=== PATIENT | male | born 1955 | race Caucasian/White ===

== ENCOUNTER 2016-06-26 18:20 | Inpatient (IN) ==
[2016-06-26 18:49] LABS: MANUAL DIFF NEEDED? NO
[2016-06-26 18:49] LABS: URINE CULTURE NEEDED? NO; URINE MICRO REVIEW NEEDED? NO; URINE SOURCE CLEAN CATCH
[2016-06-26 19:10] LABS: BILIRUBIN URINE NEGATIVE (NEGATIVE); BLOOD URINE NEGATIVE (NEGATIVE); COLOR YELLOW; GLUCOSE URINE >1000 mg/dL (NEGATIVE); LEUKOCYTES URINE NEGATIVE (NEGATIVE); NITRITE URINE NEGATIVE (NEGATIVE); PH URINE 6.5; PROTEIN URINE 100 mg/dL (NEGATIVE); SP GRAVITY URINE 1.027; TURBIDITY URINE CLEAR (CLEAR); UROBILINOGEN URINE NORMAL (NORMAL)
[2016-06-26 19:12] LABS: BASO% 0.3 % (0.0-0.8); EOS# 0.14 X1000 (0.0-0.7); EOS% 1.2 % (0.0-10.0); HEMATOCRIT 56.7 % (42.0-52.0); HEMOGLOBIN 19.1 g/dL (14.0-18.0); IMM GRAN# 0.03 X1000 (0.0-0.04); IMM GRAN% 0.3 % (0.0-0.5); LYMPH# 0.89 X1000 (1.2-3.4); LYMPH% 7.4 % (20.5-51.1); MCHC 33.7 g/dL (33-37); MCV 89.2 FL (81-99); MONO# 0.83 X1000 (0.11-0.59); MONO% 6.9 % (1.7-9.3); MPV 11.2 FL (7.4-10.4); NEUT% 83.9 % (42.2-75.2); PLT 253 X1000 (130-400); RBC 6.36 XMIL (4.7-6.1)
[2016-06-26 19:12] LABS: UR EPITHELIAL CELLS <10 /HPF (<10); URINE BACTERIA NEGATIVE /HPF; URINE RBC <10 /HPF (<10); URINE WBC <10 /HPF (<10)
[2016-06-26 19:23] LABS: CALCIUM 9.4 mg/dL (8.8-10.2); POTASSIUM 4.3 mmol/L (3.5-5.1); TOTAL BILIRUBIN 0.55 mg/dL (0.20-1.00); TOTAL PROTEIN 7.5 g/dL (6.3-8.3)
[2016-06-26] MEDS ORDERED: NS 1,000 ML IV ONE (21:34)
[2016-06-26] MEDS ORDERED: ZOFRAN IV ONE (21:35)
[2016-06-26] MEDS ORDERED: TORADOL IV ONE (21:36)
--- NOTE | 2016-06-27 00:06 | Diag Imaging Result Document ---
PROCEDURE NAME: ABDOMEN/PELVIS W/CONTRAST - 06/26/2016 CT ABDOMEN AND PELVIS WITH INTRAVENOUS CONTRAST: FINDINGS: There is a small hiatal hernia. Normal spleen, pancreas, gallbladder, and adrenal glands. There is mild fatty infiltration of the liver. No focal hepatic abnormality. A 6 mm nonobstructing stone is found in the left kidney. No renal masses. No hydronephrosis. Normal aorta. The small bowel loops are dilated. The terminal ileum is not dilated. There are many scattered colonic diverticula. These are most numerous in the descending and sigmoid colon. No abscess. No free air. The urinary bladder is moderately distended and appears normal. Prostate is not enlarged. IMPRESSION: 1. There is at least a partial small bowel obstruction. The transition appears to be in the left lower quadrant. 2. Nonobstructing left renal stone. 3. Fatty infiltration of the liver. 4. Small hiatal hernia. 5. Diverticulosis. 6. 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 No subluxation. A preliminary report was given at 10:04 p.m.
[2016-06-27] MEDS: ATIVAN IV SCH ×2 (00:15→22:22)
--- NOTE | 2016-06-27 01:28 | PROVIDER DOCUMENTATION ---
This chart was entered by Blake Hauser Scribe, acting as scribe for Aiden Hilario MD. HPI-Abdominal Pain/GI Problem - General Chief Complaint: Abdominal Pain Stated Complaint: ABD PAIN, "BLOCKAGE" Time Seen by Provider: 06/26/16 21:29 Source: patient Allergies/Adverse Reactions: Patient Allergies Allergy/AdvReac Type Severity Reaction Status Date / Time No Known Allergies Allergy Verified 06/26/16 21:01 Home Medications: Home Medication List Medication Instructions Recorded Confirmed Last Taken Type Diazepam [Valium] 10 mg PO HS 06/26/16 06/26/16 Unknown History - History of Present Illness-ABD Nature of Presenting Problems: Pt is a 61 yom who presents to ER with CC of abdominal pain that started at approximately 0800 today. Pt reports that he arrived at ED at 1700 with nausea, but after vomiting x5 consecutively, his pain went from 8/10 to 4/10. On exam, pt reports that his pain is back to a 6/10 and is complaining of bilateral upper quadrant pain, but is more prominent on Lt side. Pt reports hx of abdominal blockages, but no hx of surgeries. Abdominal Pain Onset Location: reports: RUQ, LUQ Pain Radiation: reports: no radiation Quality of Pain: reports: aching, cramping Severity in ED: reports: severe Onset/Duration: reports: this morning (0800) Timing: reports: still present Associated Symptoms: reports: anxiety, loss of appetite, nausea, weakness, trouble walking. denies: arm pain, back/neck pain, chest pain, constipation, cough, diaphoresis, diarrhea, dizziness, EENT symptoms, fatigue, fever/chills, genitourinary problems, headaches, heartburn, joint pain, malaise, muscle aches , sinus congestion/drainage, rash, seizure, shortness of breath, sensory/motor loss, pain with inspiration, swelling/mass in abdomen, syncope, vomiting Last BM: this morning Dark Stools Present?: reports: none noticed Rectal Bleeding: reports: none Rectal Pain: reports: none Emesis Description: reports: none Review of Systems - Adult - REVIEW OF SYSTEMS - ADULT Constitutional: denies: chills, fever, fatique, night sweats, weight gain, weight loss Eyes: reports: no symptoms reported Ears, Nose, Mouth & Throat: reports: no symptoms reported Cardiovascular: denies: chest pain, edema, heart murmur, irregular heart rate, orthopnea, palpitations, poor circulation, PND, syncope Respiratory: denies: chronic cough, cough, dyspnea on exertion, excessive sputum production, hemoptysis, pleurisy, shortness of breath, wheezing Gastrointestinal: reports: abdominal pain, nausea, poor appetite, vomiting. denies: hematemesis, constipation, diarrhea, difficulty swallowing, frequent heartburn, rectal bleeding Genitourinary: reports: no symptoms reported Musculoskeletal: reports: no symptoms reported Integumentary: reports: no symptoms reported Neurological: reports: no symptoms reported Psychiatric: reports: no symptoms reported Endocrine: reports: no symptoms reported Hematologic/Lymphatic: reports: no symptoms reported Allergic/Immunologic: reports: no symptoms reported All Other Systems: Reviewed and Negative Past History - Adult - PAST MEDICAL HISTORY-ADULT Review of Records: reports: Nursing Assessment Review, Medications Reviewed - IMMUNIZATION STATUS Childhood Immunizations: See Nurse Assessment Flu Vaccine: See Nurse Assessment Physical Exam-General - PHYSICAL EXAM-ADULT Initial Vital Signs Reviewed: Yes - CONSTITUTIONAL General Appearance: appears well, alert, moderate distress, anxious. negative: no apparent distress, mild distress - HEAD, EARS, NOSE, MOUTH & THROAT HENMT: normocephalic/atraumatic, moist mucous membranes, normal ENT inspection, TMs normal, pharynx normal - NECK Neck: non-tender, full range of motion, supple. negative: C-spine tenderness, limited range of motion, lymphadenopathy - RESPIRATORY Respiratory: chest non-tender, lungs clear, normal breath sounds, no pleuratic chest pain, no respiratory distress, no accessory muscle use. negative: respiratory distress, decreased breath sounds, accessory muscle use, wheezing - CARDIOVASCULAR Cardiovascular: normal peripheral pulses, regular rate, rhythm. negative: bradycardia, tachycardia, irregularly irregular - GASTROINTESTINAL (ABDOMEN) Abdominal Exam: normal bowel sounds, soft, abnormal bowel sounds (diminished), tenderness (generalized; more prominent in RUQ). negative: non tender, distended, guarding, rigid, rebound - MUSCULOSKELETAL Back Exam: no CVA tenderness, no vertebral tenderness. negative: CVA tenderness , decreased range of motion, ecchymosis, muscle spasm, swelling Extremity: normal range of motion, non-tender, normal gait, normal inspection, no pedal edema, no calf tenderness, normal capillary refill. negative: deformity, erythema, inflammation, swelling, tenderness - SKIN Integumentary: normal color, normal turgor, warm/dry. negative: abrasion(s), ecchymosis, erythema, laceration(s), swelling, tenderness, warm - NEUROLOGIC Neurologic: mineral mixer II-XII nml as tested, grossly normal, no motor/sensory deficits . negative: facial droop, focal weakness, motor weakness, sensory deficit - PSYCHIATRIC Psych/Mental Status: normal thought content, normal thought process, oriented x 3, anxious, tearful. negative: normal mood/affect Progress - PLAN OF CARE/RESULTS Progress/Plan/Lab Results: Vital Signs - 8 hr 06/26/16 18:29 Temperature 97.7 F Pulse Rate 87 Respiratory Rate 18 O2 Sat by Pulse Oximetry 99 Laboratory Results - last 24 hr 06/26/16 06/26/16 06/26/16 18:40 18:40 18:46 WBC 11.97 H RBC 6.36 H Hgb 19.1 H Hct 56.7 H MCV 89.2 MCH 30.0 MCHC 33.7 RDW Std Deviation 14.1 Plt Count 253 MPV 11.2 H Immature Gran % (Auto) 0.3 Neut % (Auto) 83.9 H Lymph % (Auto) 7.4 L [place] % (Auto) 6.9 Eos % (Auto) 1.2 Baso % (Auto) 0.3 Immature Gran # (Auto) 0.03 Neut # (Auto) 10.05 H Lymph # (Auto) 0.89 L [place] # (Auto) 0.83 H Eos # (Auto) 0.14 Baso # (Auto) 0.03 Sodium 136 Potassium 4.3 Chloride 95 L Carbon Dioxide 26 Anion Gap 15 BUN 14 Creatinine 1.3 H Estimated GFR/1.73 m2 56 BUN/Creatinine Ratio 11 Glucose 211 H Calculated Osmolality 279 Calcium 9.4 Total Bilirubin 0.55 AST 20 ALT 22 Alkaline Phosphatase 96 Total Protein 7.5 Albumin 4.0 Globulin 3.5 Albumin/Globulin Ratio 1.1 Amylase 59 Lipase 49 Urine Source CLEAN CATCH Urine Color YELLOW Urine Turbidity CLEAR Urine pH 6.5 Ur Specific [place] 1.027 Urine Protein 100 A Ur Glucose (Stick) >1000 A Ur Ketones (Stick) 40 A Urine Blood NEGATIVE Urine Nitrite NEGATIVE Urine Bilirubin NEGATIVE Urobilinogen Dipstick NORMAL Urine Leukocytes NEGATIVE Urine WBC (Auto) <10 Urine RBC (Auto) <10 U Epithel Cells (Auto) <10 Urine Bacteria (Auto) NEGATIVE Orders Category Date Time Status NPO Diet 06/26/16 18:34 Active ABDOMEN/PELVIS W/CONTRAST [CT] Stat Exams 06/26/16 21:35 Ordered AMYLASE [CHEM] Stat Lab 06/26/16 18:40 Completed CBC WITH ELECTRONIC DIFF [HEME] Stat Lab 06/26/16 18:40 Completed COMPREHENSIVE METABOLIC PANEL [CHEM] Stat Lab 06/26/16 18:40 Completed LIPASE [CHEM] Stat Lab 06/26/16 18:40 Completed URINALYSIS W/POSS RFLX CULT [URINALYSIS] Stat Lab 06/26/16 18:46 Completed 0.9% Sodium Chloride Inj [Ns] 1,000 ml Med 06/26/16 21:34 Active IV 999 mls/hr Ketorolac [Toradol] Med 06/26/16 21:36 Discontinued 30 mg IV NOW ONE Ondansetron [Zofran] Med 06/26/16 21:35 Discontinued 4 mg IV NOW ONE Result Diagrams: 06/26/16 18:40 06/26/16 18:40 - CT/MRI 1 CT Study: Abdomen, Pelvis Impression: See EMR Report (Partial SBO with apparent transition point in LLQ. Probably due to adhesions. Nonobstructing L renal stone) CT Results: See report - CONSULTS/PCP/HOSPITALIST Notification #1 *Consult/PCP/Hospitalist*: Dr. Sprague (Hospitalist) Time Discussed: 22:24 Consult Disposition: Admit Departure - Departure Time of Disposition Decision: 22:24 DIAGNOSIS: SBO (small bowel obstruction) Disposition: ADMITTED INPATIENT 09 Certified Medical Emergency: Emergent Condition: Stable Referrals and Follow-Ups: Alan Mari [Primary Care Provider] - This chart was documented by the indicated scribe, (Blake Hauser Scribe) and accurately reflects the services I performed and decisions made by me, Aiden Hilario MD, as attested by the provider's signature.
[2016-06-27] MEDS ORDERED: SODIUM CHLORIDE 0.9% INJ PRN (01:48)
[2016-06-27] MEDS ORDERED: ZOFRAN IV PRN (01:48)
[2016-06-27] MEDS: MORPHINE IV PRN ×4 (02:24→22:22)
[2016-06-27] MEDS: PHENERGAN IV PRN ×2 (02:25→16:10)
[2016-06-27 03:13] LABS: HEMOGLOBIN A1C 6.5 % (4.8-6.0)
[2016-06-27 06:13] LABS: MANUAL DIFF NEEDED? NO
[2016-06-27 06:20] LABS: BASO% 0.3 % (0.0-0.8); EOS% 1.1 % (0.0-10.0); HEMATOCRIT 51.7 % (42.0-52.0); HEMOGLOBIN 17.4 g/dL (14.0-18.0); IMM GRAN# 0.04 X1000 (0.0-0.04); IMM GRAN% 0.4 % (0.0-0.5); LYMPH# 0.75 X1000 (1.2-3.4); MCH 30.3 PG (27-31); MCHC 33.7 g/dL (33-37); MCV 90.1 FL (81-99); MONO# 0.88 X1000 (0.11-0.59); MONO% 9.4 % (1.7-9.3); MPV 11.3 FL (7.4-10.4); NEUT% 80.8 % (42.2-75.2); PLT 234 X1000 (130-400); RBC 5.74 XMIL (4.7-6.1)
[2016-06-27 06:32] LABS: AGAP 12; BUN 19 mg/dL (8-22); CALCIUM 8.3 mg/dL (8.8-10.2); CHLORIDE 102 mmol/L (98-107); COSMO 285; POTASSIUM 4.4 mmol/L (3.5-5.1); SODIUM 140 mmol/L (136-145); TCO2 26 mmol/L (25-35)
--- NOTE | 2016-06-27 07:25 | HISTORY AND PHYSICAL ---
PRIMARY CARE PHYSICIAN: Dr. Alan Mari. CHIEF COMPLAINT: Abdominal pain, nausea, and vomiting. HISTORY OF PRESENT ILLNESS: This is a 61-year-old male with history of hypertension, diabetes, and high cholesterol who presented to the emergency department complaining of nausea, vomiting, and mild abdominal pain. The patient reports that today he started vomiting and since then he has had 5 episodes of vomiting with mild abdominal pain in the periumbilical area. He claims that he had 4 times this problem, small-bowel obstruction, though he has not had any surgery before and he was supposed to be seen by Dr. Ahn in 1 week for colonoscopy. Now the patient is doing better and he is not complaining of any fever at all. The patient is being admitted for further evaluation and treatment. PAST MEDICAL HISTORY: 1. Diabetes. 2. Hypertension. 3. Dyslipidemia. 4. Kidney stones. PAST SURGICAL HISTORY: None. ALLERGIES: None. SOCIAL HISTORY: He lives with his . Denies drinking alcohol or drugs, but he admits to have quit smoking 5 or 6 weeks ago. The patient has been admitted for further evaluation and treatment. ER reported that the CT of the abdomen shows a small bowel obstruction. REVIEW OF SYSTEMS: Eleven systems were reviewed and all symptoms are related to H P. PHYSICAL EXAMINATION: VITALS: Temperature 97.7 degrees, heart rate 87, respiratory rate 18, blood pressure Pulse oximetry is 99% on room air. GENERAL: This is a 61-year-old male lying in bed, in no acute distress. HEENT: Head is normocephalic, atraumatic. Anicteric sclerae. Pale conjunctivae. Mucous membranes moist. NECK: Supple. No JVD noted. No carotid bruits. No lymphadenopathy. No thyromegaly. CARDIOVASCULAR: S1, S2 heard. No murmurs, gallops, or rubs. Regular rate and rhythm. RESPIRATORY: Clear bilaterally to auscultation. No work of breathing or using accessory muscles. ABDOMEN: Soft, distended, nontender to palpation. Bowel sounds absent. No organomegaly. EXTREMITIES: No clubbing, cyanosis, or edema. Peripheral pulses present in both legs. NEUROLOGICAL: Patient is alert and oriented x3. Able to move 4 extremities. Cranial nerves 2-12 grossly normal. LABORATORY DATA: White cell count 11.97 with hemoglobin 19.1, hematocrit and BMP unremarkable except mild elevation of creatinine 1.3. ASSESSMENT AND PLAN: 1. Partial small bowel obstruction. 2. Hypertension. 3. Diabetes. PLAN: The patient is being admitted to the hospital for a small-bowel obstruction. According to him, this is the 5th time that he developed this problem. We are going to consult Dr. Jones from General surgery. We are going to consult also GI Dr. Ahn. At this time, I think we are also going to provide IV fluids as well, and medication for nausea and vomiting. Regarding mild COLTON will see what this BMP shows after this patient was hydrated. Further recommendations to follow according to the clinical situation of the patient. cc: Vishal Hernandez MD
--- NOTE | 2016-06-27 10:03 | PROGRESS NOTE ---
DATE: 06/27/2016 SUBJECTIVE: Patient admitted yesterday with small bowel obstruction. He came with abdominal pain, nausea, vomiting. He has had this before. I think his last event was back this last January. A 61-year-old with history of hypertension, diabetes, history of hypercholesterolemia who presented to the emergency department complaining of nausea, vomiting, abdominal pain. Patient reports that he started vomiting. Since then, he has had 5 episodes of vomiting and abdominal pain in the umbilical area. Claims that he has had this problem 4 times with a small bowel obstruction. He has had surgery before and he is supposed to see Dr. Ahn in one week for colonoscopy. PAST MEDICAL HISTORY: 1. Diabetes mellitus type 2. 2. Hypertension. 3. Hyperlipidemia. 4. Kidney stones. PHYSICAL EXAM: Today he does not have an NG tube in yet, they are planning on doing that.Lungs: Clear in all lung arevalo. Abdomen: Slightly distended. Decreased bowel sounds. Extremities: Without clubbing, cyanosis, or edema. Vital signs: Afebrile, temp 98.5 degrees, pulse 67, respirations 18, blood pressure 145/73. REVIEW OF LABS: On presentation, white count 30598, hematocrit 56, platelet count 253,000, sodium 140, potassium 4.1 chloride 102, bicarb 26, BUN 19, creatinine 1.2. The calcium was 8.3. Urinalysis unremarkable. His abdominal pelvic CT shows at least partial small bowel obstruction. Transition seems to be at the left lower quadrant. Nonobstructing left renal stone. Fatty infiltration of liver. Small hiatal hernia. Diverticulosis. Bilateral pars defect at the L5 vertebral. No subluxation. ASSESSMENT AND PLAN: 1. Partial small bowel obstruction. I think we will need an NG-tube in. Dr. Chris Jones is following. Continue IV fluids. 2. Hypertension. Watch blood pressure. 3. Diabetes mellitus type 2. Admitted on pattern sugars with sliding scale. Review of his orders I do not see any change at this point. He is getting normal saline at 125 mL an hour. I think the plan is to place an NG tube. cc: Jin Cortes MD
[2016-06-27] MEDS: NS 1,000 ML IV SCH ×3 (10:52→23:28)
--- NOTE | 2016-06-27 12:56 | Diag Imaging Result Document ---
PROCEDURE NAME: CHEST/ABD TUBE PLACEMENT - 06/27/2016 AP CHEST AND ABDOMEN: INDICATION: NG tube placement. FINDINGS: The NG tube appears to be in the fundus of the stomach. IMPRESSION: NG tube as described.
--- NOTE | 2016-06-27 18:44 | CONSULTATION ---
DATE OF CONSULTATION: 06/27/2016 HISTORY OF PRESENT ILLNESS: This is a 61-year-old male whose had five episodes of bowel obstruction in the past and has never had a previous abdominal operation. Some of these resolved at home, but he is also required recent admission for NG tube placement approximately 1-1/2 years ago. He has had some colicky pains but this improved. Vomited several times the last 24 hours. No flatus, no bowel movements. He has had several colonoscopies that have had polyps at times. Does have family history of Crohn's and Dr. Ahn has planned to scope him soon. PAST MEDICAL HISTORY: Diabetes, hypertension, hyperlipidemia, and kidney stones. PAST SURGICAL HISTORY: Tonsillectomy, but no abdominal operation. SOCIAL HISTORY: Denies alcohol or drugs. Quit smoking about 6 weeks ago. He is . REVIEW OF SYSTEMS: Ten point negative, except for what is mentioned in history of present illness. Denies blood thinners. No cardiac symptoms. PHYSICAL EXAMINATION: Vital Signs: Temperature was 98.5, pulse 67, blood pressure 145/73, oxygen saturation 97% on room air. General: He is alert, no acute distress. HEENT: No scleral icterus. Neck: There is no cervical lymphadenopathy. Cardiovascular: Normal rate, regular rhythm. Pulmonary: No increased work of breathing. Abdomen: Soft, mildly distended, tympanic, but no peritonitis, nontender. Integument: Otherwise warm and dry without jaundice. Extremities: No lower extremity edema. Extremities are well perfused. Musculoskeletal: no atrophy Neuro: normal strength throughout LABS: White count is 9, hematocrit 51, platelets are 234,000. Creatinine is 1.2, potassium 4.4. CO2 is 26. Urinalysis was negative for leukocytes and nitrites. CT of the abdomen and pelvis shows transition point in left lower quadrant causing bowel obstruction, left renal stones, fatty infiltration of liver, small hiatal hernia , diverticulosis, and a bilateral pars defect at L5. ASSESSMENT/PLAN: This is a 61-year-old male, whose had multiple episodes of bowel obstructions of unclear etiology. He denies appendicitis. Never really has pain with these episodes. Never had diverticulitis, although he does have extensive diverticulosis. He has been followed. Does have a family history of Crohn's and has been followed by Dr. Ahn. This was scoped several times. Overall, no concerning risk factors. Denies any bleeding or obstructive symptoms, but when he does have pain it is on his left side. Given the lack of previous abdominal operations, we have had long discussion. I recommend exploration tomorrow. His exam is benign, so I feel is best was to decompress and NG tube for 24 hours prior to proceeding with surgery. Will touch base Dr. Ahn to get a better idea of his GI history, but otherwise we will plan to go tomorrow. We discussed that this would entail exploration, possible bowel resection, low chance of ostomy, but always a possibility. May need to pursue this sooner if his exam deteriorates. cc: Esequiel Jones MD MTDD
[2016-06-28] MEDS: MORPHINE IV PRN ×5 (02:39→21:50)
[2016-06-28] MEDS: NS 1,000 ML IV SCH (02:41)
[2016-06-28 06:10] LABS: MANUAL DIFF NEEDED? NO
[2016-06-28 06:30] LABS: BASO% 0.4 % (0.0-0.8); EOS% 2.8 % (0.0-10.0); HEMATOCRIT 51.3 % (42.0-52.0); HEMOGLOBIN 16.8 g/dL (14.0-18.0); IMM GRAN# 0.02 X1000 (0.0-0.04); IMM GRAN% 0.3 % (0.0-0.5); LYMPH% 8.3 % (20.5-51.1); MCH 30.5 PG (27-31); MCHC 32.7 g/dL (33-37); MCV 93.1 FL (81-99); MONO# 0.68 X1000 (0.11-0.59); MONO% 9.4 % (1.7-9.3); MPV 11.4 FL (7.4-10.4); NEUT% 78.8 % (42.2-75.2); PLT 205 X1000 (130-400); RBC 5.51 XMIL (4.7-6.1)
[2016-06-28 06:41] LABS: AGAP 8; BUN 17 mg/dL (8-22); CALCIUM 7.9 mg/dL (8.8-10.2); CHLORIDE 105 mmol/L (98-107); COSMO 283; POTASSIUM 4.3 mmol/L (3.5-5.1); SODIUM 141 mmol/L (136-145); TCO2 28 mmol/L (25-35)
[2016-06-28] MEDS ORDERED: SODIUM CHLORIDE 0.9% 10 ML ONE (07:56)
[2016-06-28] MEDS ORDERED: EXPAREL 1.3% ONE (07:57)
[2016-06-28] MEDS ORDERED: MARCAINE 0.25% PF ONE (07:57)
[2016-06-28] MEDS ORDERED: INVANZ 1 GM/NS 1 GM/50 ML IVPB ONE (08:15)
[2016-06-28] MEDS ORDERED: CLAVE SECONDARY SET 11953 ONE (08:16)
[2016-06-28] MEDS ORDERED: INVANZ 1 GM/NS 1 GM/50 ML IVPB IV ONE (08:29)
[2016-06-28 09:55] LABS: URINE MICRO REVIEW NEEDED? NO; URINE SOURCE CATH
[2016-06-28 10:03] LABS: BILIRUBIN URINE NEGATIVE (NEGATIVE); BLOOD URINE NEGATIVE (NEGATIVE); COLOR YELLOW; GLUCOSE URINE 150 mg/dL (NEGATIVE); LEUKOCYTES URINE NEGATIVE (NEGATIVE); NITRITE URINE NEGATIVE (NEGATIVE); PROTEIN URINE NEGATIVE (NEGATIVE); SP GRAVITY URINE 1.016; TURBIDITY URINE CLEAR (CLEAR); UROBILINOGEN URINE NORMAL (NORMAL)
[2016-06-28 10:05] LABS: UR EPITHELIAL CELLS <10 /HPF (<10); URINE BACTERIA NEGATIVE /HPF; URINE RBC <10 /HPF (<10); URINE WBC <10 /HPF (<10)
[2016-06-28] MEDS ORDERED: DIPRIVAN 1% ONE (11:30)
[2016-06-28] MEDS ORDERED: FENTANYL ONE (11:30)
[2016-06-28] MEDS ORDERED: VERSED ONE (11:30)
[2016-06-28] MEDS ORDERED: NEOSTIGMINE ONE (11:39)
[2016-06-28] MEDS ORDERED: TORADOL ONE (11:40)
[2016-06-28] MEDS ORDERED: ZOFRAN ONE (11:40)
[2016-06-28] MEDS ORDERED: EPHEDRINE ONE (11:40)
[2016-06-28] MEDS ORDERED: LR 1,000 ML ONE (11:40)
[2016-06-28] MEDS ORDERED: QUELICIN (DOSE) ONE (11:40)
[2016-06-28] MEDS ORDERED: XYLOCAINE-MPF 2% ONE (11:40)
[2016-06-28] MEDS ORDERED: NORCURON ONE (11:40)
[2016-06-28] MEDS: MORPHINE ONE ×3 (11:46→12:12)
[2016-06-28] MEDS ORDERED: PHENERGAN ONE (11:52)
--- NOTE | 2016-06-28 12:23 | PROGRESS NOTE ---
DATE: 06/28/2016 Mr. Saxena belly continues to be uncomfortable. He has had multiple episodes of bowel obstruction of unclear etiology. Denies any appendicitis in the past. Never really has had pain with these episodes. Never had any diverticulitis but he does have extensive diverticulosis. He has a family history of Crohn's disease followed by Dr. Ahn. He has been scoped several times. Denies any bleeding or obstructing symptoms but he does have pain on the left side so exploratory surgery planned for this morning. PHYSICAL EXAMINATION: Vital Signs: Temperature 98.5 degrees, pulse 79, respirations 16, blood pressure 148/72. HEENT: Pupils are equal and round. CVP less than 6 cm. Urine output was good, almost 4 L. LAB: Reviewed from this morning: White count 7230, hematocrit 51, platelet count 205,000. Chemistry: Sodium 141, potassium 4.3, chloride 105, bicarb 28, BUN 17, creatinine 1.1. Blood sugar is 102, 90, 99, 94. ASSESSMENT/PLAN: Small bowel obstruction. Plan is exploratory laparotomy today. He has had 5 previous episodes I believe and has never had any previous abdominal operation. These episodes resolved at home. Review of his orders: I do not see any change. He is getting Ertapenem 1 g which he got this morning one dose. Fluids are gone at 125 mL an hour of normal saline. He gets 1 mg Ativan at night and getting morphine q.3 hours p.r.n. pain. cc: Jin Cortes MD
[2016-06-28] MEDS ORDERED: OFIRMEV 1000 MG/ISOTONIC SOLN 1,000 MG/100 ML BOTTLE ONE (12:28)
--- NOTE | 2016-06-28 13:01 | OPERATIVE NOTE ---
PROCEDURE DATE: 06/28/2016 PREOPERATIVE DIAGNOSIS: Small-bowel obstruction. POSTOPERATIVE DIAGNOSES: 1. Small-bowel obstruction. 2. 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 PROCEDURE: 1.) Exploratory Laparotomy 2.) Meckel's Diverticulectomy 3.) Small Bowel resection 4.) Appendectomy SURGEON: Chris Jones MD COMPLICATIONS: None. ESTIMATED BLOOD LOSS: 50 mL. SPECIMENS: 1. Meckel's diverticulum. 2. Appendix. 3. Small bowel resection. INDICATIONS: A 61-year-old male, who has had 5 episodes of bowel obstruction that have resolved nonoperatively, but has had no previous abdominal operations. He had colonoscopy approximately 8 years ago that was normal, but is due for another. CT scan does not show any obvious neoplastic process or hernia on exam. Exploration is indicated. OPERATIVE FINDINGS: There was a Meckel's diverticulum in the ileum approximately 20 inches from the ileocecal valve. It was not inflamed. There was no mass within the small bowel at this area or with the Meckel diverticulum. There was another area more distally approximately 12 inches away from this that had irregularity of the mesentery next to the small bowel. It was somewhat furled on itself and there was a palpable intraluminal nodule approximately 1 cm. Appendix was normal appearing. There were no other lesions in the peritoneum, liver, remaining small bowel, or colon. The colon did have some formed stool within the sigmoid and rectum. The stomach was normal. There was some straw-colored ascites, minimal amounts. DESCRIPTION OF PROCEDURE: Risks, benefits, and alternatives discussed with the patient, he consented for procedure. He was seen in the preoperative area and surgery to be performed was confirmed. He was taken to the operating room, placed in supine position. General anesthesia was induced. He was then placed in lithotomy, all bony prominence were padded. Ugalde catheter was placed. Preincisional antibiotics were administered. NG tube was already in place. The abdomen was prepped with chlorhexidine after removal of his hair with clippers and draped in usual fashion. Time-out was performed between nursing, surgical, and anesthesia staff. A midline incision was made and carried down to the level of the fascia was entered with electrocautery and the peritoneum was elevated and opened sharply protect underlying structures. There was no bailey of air. There was no succus. We extended this incision above and below the umbilicus, placed an extra-large Cortes wound protector here and began running the small bowel. It became evident that there was a Meckel's that was causing an acute angulation of the small intestine and an obstruction here. There was also this area of normal appearing small bowel between the Meckel's and the terminal ileum with a small palpable intraluminal nodule here. As such , we performed a Meckel's diverticulectomy with a fire of a 60 mm FORTUNATO stapler longitudinally, not encroaching upon the lumen and then imbricated this with 3-0 Vicryl sutures. There was good closure of this and was good patency after this with no narrowing of the lumen. We then perform an appendectomy. We dissected the mesoappendix dividing this with electrocautery. It was a very small normal appearing appendix, took this back to the base of the cecum, suture ligated the base, excised this with electrocautery. Bovie fulgurated the mucosa and imbricated this again with 3-0 Vicryl sutures in interrupted fashion. There was good closure here. We ran the bowel again and this area of concern proximal ileocecal valve with palpable mass, we elected to resect this. We did this with 2 fires of the FORTUNATO stapler. We took the mesentery with hemostatic clamps and 3-0 Vicryl sutures, passed this off the table. There was no spillage of succus. We did protect with blue towels the surrounding structures, and using an 80 FORTUNATO blue load, we created a [id number] functional end-to-end stapled anastomosis with 1 fire creating a common enterotomy and the other fire closing the common enterotomy of the FORTUNATO stapler. We placed a crotch stitch with 3-0 Vicryl sutures, imbricated the corners with 3-0 Vicryl sutures. Both edges of the bowel were pink and viable and bleeding with good blood supply. There was no tension on the anastomosis. Placed it back in anatomic position. Closed the mesenteric defect with 3-0 Vicryl suture. Irrigated the abdomen, again inspected it, there was no evidence of bleeding. Counts were correct. We then closed the fascia with #1 PDS suture after changing our gloves. The wound protector was used throughout the case to protect and prevent wound infection. We irrigated the superficial wound, closed the skin with running 4-0 Monocryl. Dermabond was applied. Tolerated it well. Transferred to PACU and back to the floor. I spoke with the family. No identified complication. cc: Esequiel Jones MD MTDD
[2016-06-28] MEDS: OFIRMEV 1000 MG/ISOTONIC SOLN 1,000 MG/100 ML BOTTLE IV SCH ×2 (17:31→23:22)
[2016-06-28] MEDS: LR 1,000 ML IV SCH (17:34)
--- NOTE | 2016-06-28 18:14 | PROGRESS NOTE ---
DATE: 06/28/2016 SUBJECTIVE: Patient is seen in the preoperative area. Doing well. No flatus. Some colicky pains overnight. NG tube is in place. OBJECTIVE: Vitals afebrile, no tachycardia. LABS: Reviewed. White count normal at 7, hematocrit 51, creatinine is 1.1. Abdomen is soft, mildly distended, nontender. No peritonitis. Integument is otherwise warm, dry. Cardiovascular. Normal rate, regular rhythm. ASSESSMENT AND PLAN: 61-year-old male with recurrent bowel obstructions of unclear etiology. We have had long discussion and I have recommended exploration today in the operating room and he understands. Risk including bleeding, infection, anastomotic leak if bowel resection is performed and damage to other structures he understands these. Also discussed possibility of lysis of adhesions, small bowel or colon resection and the unlikely but possible likelihood of a temporary ostomy. He understands all this and gives consent and would like to proceed. Plan is to go the operating room today. cc: Esequiel Jones MD
[2016-06-28] MEDS: PERIDEX MT SCH ×2 (20:10→23:10)
[2016-06-29] MEDS: MORPHINE IV PRN ×7 (00:55→20:44)
[2016-06-29] MEDS: LR 1,000 ML IV SCH ×2 (02:38→11:01)
[2016-06-29] MEDS: OFIRMEV 1000 MG/ISOTONIC SOLN 1,000 MG/100 ML BOTTLE IV SCH ×4 (05:07→23:12)
[2016-06-29 05:44] LABS: MANUAL DIFF NEEDED? NO
[2016-06-29 05:53] LABS: BASO% 0.2 % (0.0-0.8); EOS# 0.07 X1000 (0.0-0.7); EOS% 0.8 % (0.0-10.0); HEMATOCRIT 49.6 % (42.0-52.0); HEMOGLOBIN 16.5 g/dL (14.0-18.0); LYMPH# 0.39 X1000 (1.2-3.4); LYMPH% 4.4 % (20.5-51.1); MCH 30.9 PG (27-31); MCHC 33.3 g/dL (33-37); MCV 92.9 FL (81-99); MONO# 0.99 X1000 (0.11-0.59); MONO% 11.3 % (1.7-9.3); MPV 11.5 FL (7.4-10.4); NEUT% 83.3 % (42.2-75.2); PLT 190 X1000 (130-400); RBC 5.34 XMIL (4.7-6.1)
[2016-06-29 06:17] LABS: AGAP 11; BUN 18 mg/dL (8-22); CALCIUM 8.1 mg/dL (8.8-10.2); CHLORIDE 101 mmol/L (98-107); COSMO 277; POTASSIUM 4.8 mmol/L (3.5-5.1); SODIUM 137 mmol/L (136-145); TCO2 25 mmol/L (25-35)
[2016-06-29] MEDS: PERIDEX MT SCH ×3 (08:16→20:45)
[2016-06-29] MEDS ORDERED: LOVENOX SUBQ SCH (09:00)
--- NOTE | 2016-06-29 09:44 | PROGRESS NOTE ---
DATE: 06/29/2016 SUBJECTIVE: Mr. Ng feels better today. NG tube still in place. Abdomen still hurting but better than yesterday. OBJECTIVE: Temperature 97.8 degrees, pulse 77, respirations 18, blood pressure 174/92. Pupils are equal, round. CVP less than 6 cm. Lungs are clear in all lung arevalo. Cardiovascular: Regular rhythm and rate without murmur or S3. Urine output 2700 mL. LABORATORY: White count 8,770. Hematocrit 49, platelet count 190,000. Sodium 137, potassium 4.9, chloride 101, bicarb 25. BUN 18, creatinine 1.0. Blood sugar is 109, 113, 127. ASSESSMENT AND PLAN: A 61-year-old male with recurrent bowel obstructions. Unclear etiology. He had exploratory surgery yesterday per Dr. Chris Jones. He had small bowel obstruction, Meckel's diverticulum causing bowel obstruction, terminal ileum mass. Waiting on pathology. Continue present measures. cc: Jin Cortes MD
--- NOTE | 2016-06-29 12:48 | PROGRESS NOTE ---
DATE: 06/29/2016 SUBJECTIVE: Pain is okay. Minimal pain med requirement. No flatus yet. No nausea, vomiting. Temp is 98 degrees, pulse 86, blood pressure 178/87, oxygen saturation 93% on room air. He is ambulating around the room. LABS: I reviewed his labs. White count is normal at 8. Hematocrit is 49. Creatinine is 1.0. ASSESSMENT AND PLAN: This is a 61-year-old male, status post Meckel's diverticulectomy, small bowel resection and appendectomy for bowel obstruction. He is doing well. NG tube in place. Plan to remove this tomorrow. In the meantime, increased ambulation, pulmonary toileting. He is on DVT prophylaxis, and p.r.n. morphine. I will start a PPI on him as well. cc: Esequiel Jones MD [facility]
[2016-06-29] MEDS: D5 NS 1,000 ML IV SCH (16:25)
[2016-06-29] MEDS ORDERED: NS IV SCH (18:45)
[2016-06-29] MEDS ORDERED: ROBAXIN IV SCH (18:45)
[2016-06-29] MEDS: SODIUM CHLORIDE 0.9% INJ SCH (20:45)
[2016-06-29] MEDS: PROTONIX IV SCH (20:45)
[2016-06-29] MEDS: ROBAXIN 1,000 MG in NS 50 ML IV SCH (20:46)
[2016-06-29] MEDS: AMBIEN PO PRN (23:12)
[2016-06-30] MEDS: D5 NS 1,000 ML IV SCH ×3 (01:45→23:35)
[2016-06-30] MEDS: ROBAXIN 1,000 MG in NS 50 ML IV SCH ×4 (03:41→20:08)
[2016-06-30] MEDS: MORPHINE IV PRN ×2 (03:50→12:31)
[2016-06-30] MEDS: OFIRMEV 1000 MG/ISOTONIC SOLN 1,000 MG/100 ML BOTTLE IV SCH ×4 (05:42→23:35)
--- NOTE | 2016-06-30 09:05 | PROGRESS NOTE ---
DATE: 06/30/2016 SUBJECTIVE: NG tube came out last night. He tolerated this well. He had some muscle spasm that has been relieved by Robaxin. He is increasing his mobility. OBJECTIVE: Vital Signs: No fevers. Pulse is 79, blood pressure 173/99, oxygen saturation 98% on room air. General: He is alert. Abdomen: Soft, appropriately tender. Incision is clean, dry, and intact. He does have quite a bit of bruising. I am going to hold his Lovenox this morning, given the bruising. PLAN: Plan to give him sips of liquids today. He has got SCDs and PPI prophylaxis, increasing in his pulmonary, ambulating, awaiting return of bowel function before we advance the diet. cc: Esequiel Jones MD
[2016-06-30] MEDS: PERIDEX MT SCH ×2 (10:42→20:08)
--- NOTE | 2016-06-30 12:40 | PROGRESS NOTE ---
DATE: 06/30/2016 Mr. Ng is feeling much better. NG tube is out. Ugalde is out. He is voiding okay and afebrile. Abdomen is still pretty sore. Temp 98.1 degrees, pulse 79, respirations 16, blood pressure 173/99, CVP less than 6 cm.Lungs: Clear in all lung arevalo. Cardiovascular: Regular rhythm and rate without murmurs, S3. Abdomen: Absent bowel sounds. Urine output was well over 5 L. LAB: Reviewed from yesterday. Hematocrit stable at 49. Chemistries look good. His blood sugars look good. ASSESSMENT AND PLAN: Plan to give him sips of liquids today. He has SCDs, PPI prophylaxis, seems to be making good progress. More comfortable. Awaiting return of his bowel function. Review of his orders: I do not see any changes at this point. cc: Jin Cortes MD
[2016-06-30] MEDS: PROTONIX IV SCH (20:08)
[2016-06-30] MEDS: CATAPRES PO PRN (20:08)
[2016-06-30] MEDS: SODIUM CHLORIDE 0.9% INJ SCH (20:08)
[2016-06-30] MEDS: AMBIEN PO PRN (21:56)
[2016-07-01] MEDS: ROBAXIN 1,000 MG in NS 50 ML IV SCH ×4 (02:56→20:05)
[2016-07-01] MEDS: D5 NS 1,000 ML IV SCH ×2 (02:57→11:44)
[2016-07-01] MEDS: OFIRMEV 1000 MG/ISOTONIC SOLN 1,000 MG/100 ML BOTTLE IV SCH ×3 (05:41→18:03)
[2016-07-01] MEDS: PERIDEX MT SCH ×2 (08:12→20:05)
--- NOTE | 2016-07-01 10:16 | PROGRESS NOTE ---
DATE: 07/01/2016 SUBJECTIVE: Mr. Ng is feeling a lot better. NG tube is out. He has had a bowel movement, so the abdomen is much less tender. OBJECTIVE: Vital Signs: Afebrile with temp 97.7 degrees, pulse 73, respirations 14, blood pressure 166/103. HEENT: Pupils are equal and round. CVP less than 6 cm. Lungs: Clear in all lung arevalo. Cardiovascular exam: Regular rhythm and rate. Abdomen: Nondistended. Positive bowel sounds. : Urine output is close to 6 L. LABS: No new labs from this morning. Blood sugars: 122, 105, 130. ASSESSMENT AND PLAN: 1. Advancing his diet. He is making good progress. Good bowel activity. He has had sequential compression devices and proton pump inhibitor prophylaxis. Hope to possibly let him go home tomorrow. 2. Blood sugars look good. Review of his orders: I do not see any changes. cc: Jin Cortes MD
--- NOTE | 2016-07-01 12:59 | PROGRESS NOTE ---
DATE: 07/01/2016 SUBJECTIVE: He feels well. He had a large bowel movement and passing gas last night. No nausea or vomiting. He is tolerating clear liquids. Minimal pain. The Robaxin is helping. OBJECTIVE: Vital Signs: On physical exam, temperature is 98.7 degrees, pulse 73, blood pressure 166/103. General: He is alert, oriented. Abdomen: Soft, appropriately tender. Incision is clean, dry, intact. There is some bruising of his incision. LABORATORY DATA: No new labs this morning. ASSESSMENT AND PLAN: This is a 61-year-old male, status post exploratory laparotomy for bowel obstruction. He was found to have Meckel's, small bowel polyp, and he underwent a bowel resection and appendectomy and a Meckel diverticulectomy. He is doing okay. Return of bowel function. Advance the diet to soft. I am holding his Lovenox, he has got sequential compression devices and he is ambulating, given the bruising in his abdomen. He has got a proton pump inhibitor, but overall, he is progressing well. I suspect he will be ready for discharge in the next 24 to 48 hours. cc: Esequiel Jones MD
[2016-07-01] MEDS: PROTONIX IV SCH (20:05)
[2016-07-01] MEDS: MORPHINE IV PRN (20:06)
[2016-07-01] MEDS: CATAPRES PO PRN (20:51)
[2016-07-01] MEDS: AMBIEN PO PRN (21:50)
[2016-07-02] MEDS: MORPHINE IV PRN (02:03)
[2016-07-02 02:46] VITALS: BP 155/97
[2016-07-02] MEDS: ROBAXIN 1,000 MG in NS 50 ML IV SCH (03:59)
[2016-07-02] MEDS: OFIRMEV 1000 MG/ISOTONIC SOLN 1,000 MG/100 ML BOTTLE IV SCH ×2 (06:30→06:31)
[2016-07-02] MEDS: PERIDEX MT SCH (07:43)
--- NOTE | 2016-07-02 09:44 | DISCHARGE SUMMARY ---
ADMISSION DATE: 06/26/2016 DISCHARGE DATE: 07/02/2016 ADMITTING DIAGNOSIS: Small-bowel obstruction. DISCHARGE DIAGNOSES: 1. Small-bowel obstruction. 2. Meckel's diverticulum. 3. Terminal ileum mass. PRINCIPAL PROCEDURE: Excision of Meckel's diverticulum, small bowel resection and appendectomy per Dr. Chris Jones on 06/28/2016. DISCHARGE DISABILITY: Full. DISCHARGE DISPOSITION: He will return to see Dr. Jones in a week. DISCHARGE MEDICATION: He is to return to his home medication. DISCHARGE DIET: Regular. HOSPITAL COURSE: Mr. Ng is a 61-year-old white male, who presented to our emergency department on 06/26/2016 with symptoms of small bowel obstruction. He was admitted through the emergency department to our hospitalists. An NG tube was placed. The surgery was consulted Dr. Chris Jones who on 06/28/2016 took him to surgery for small bowel obstruction with the findings above. We feel that his postoperative convalescence was been normal and it was felt safe to send him home under the care of his family on postop day 4. His incision is healing well. He is he does have bruising of his anterior abdominal wall which is significant. His abdomen is mostly soft. He is having bowel function and he is able to ambulate in the halls. At discharge, his heart rate was 66, blood pressure 155/97, O2 saturation 96%. He was afebrile on no antibiotics. DISCHARGE INSTRUCTIONS: He knows to contact us with any problems but otherwise will return to our office in a week. cc: Megha Capone MD
== END 2016-07-02 11:09 | disposition home or self-care (01) ==
LOC: ED 18:20 → SUATTDRO 18:21 → 4N 06-27 01:31
PROVIDERS: ATTEND Emergency Medicine